=== PATIENT | female | born 1935 | race Caucasian/White ===

== ENCOUNTER 2016-12-17 02:44 | Emergency (ER) | payer MEDICARE, BC ==
[~2016-12-17] VITALS: Ht 160 cm; Wt 62.2 kg
[~2016-12-17 02:44] MED LIST: AMBIEN5 MG PO; ASPIRIN LOW DOS81 M2 PO; CALCIUM500 MG PO; DULERA1 AE1 IN; FISH OIL1000 MG PO; ISOSORB MONO30 MG PO; LISINOPRIL10 MG PO; METO50TA52 PO; MULTI VIT PO; NEXIUM40 M1 PO; PROLIA60 MG/ML SC; ZYRTEC10 MG PO
[2016-12-17] MEDS ORDERED: METO25TAB PO (03:01)
[2016-12-17] MEDS ORDERED: ASPIRIN81 MG PO (03:02)
[2016-12-17] MEDS ORDERED: PLAVIX75 MG PO (03:02)
[2016-12-17] MEDS ORDERED: CALTRATE 600+D1 CHW PO (03:04)
[2016-12-17] MEDS ORDERED: PROTONIX40 M2 PO (03:05)
[2016-12-17] MEDS ORDERED: LORTAB 5-325 MG1 TAB PO (04:25)
[2016-12-17 04:54] VITALS: BP 129/60
== END 2016-12-17 04:55 | disposition home or self-care (01) ==
LOC: ED 02:44
DX: M54.6 Pain in thoracic spine (principal); I48.91 Unspecified atrial fibrillation; I10 Essential (primary) hypertension; K21.9 Gastro-esophageal reflux disease without esophagitis; J45.909 Unspecified asthma, uncomplicated

== ENCOUNTER 2018-02-28 07:53 | Day surgery (SDC) | payer MEDICARE, BC ==
[~2018-02-28 07:53] MED LIST changes: +ALLEGRA ALLERGY60 MG PO; +ASPIRIN81 MG PO; +CALCIUM 600+D31 TA2 PO; +CALTRATE 600+D1 CHW PO; +CENTRUM SILVER1 TA1; +CO Q-10 PO; +DEXILANT60 MG PO; +LORTAB 5-325 MG1 TAB PO; +MAGNESIUM CITRATE PO; +MELATONIN5 M3 PO; +METO25TAB PO; +PLAVIX75 MG PO; +PROBIOTIC ACIDOPHILU PO; +PROTONIX40 M2 PO; +ROPINIROLE HCL0.5 MG PO; +VITAMIN D3400 UNIT PO; +XYZAL ALLERGY 245 MG; +[UNRECOGNIZED DRUG - OTHER] PO
[2018-02-28] MEDS ORDERED: DEXILANT30 MG PO (10:11)
[2018-02-28 10:43] VITALS: BP 103/58
== END 2018-02-28 10:33 | disposition home or self-care (01) ==
LOC: ENDO 07:53 → ORM 10:45
PROVIDERS: ATTEND Surgery
PROC: 0DJ08ZZ Inspection of Upper Intestinal Tract, Via Natural or Artificial Opening Endoscopic (ICD-10-PCS; principal; 2018-02-28)
DX: K44.9 Diaphragmatic hernia without obstruction or gangrene (principal); K21.9 Gastro-esophageal reflux disease without esophagitis; Z86.73 Personal history of transient ischemic attack (TIA), and cerebral infarction without residual deficits

== ENCOUNTER 2018-04-01 10:36 | Observation (INO) | payer MEDICARE, BC ==
[~2018-04-01] VITALS: Ht 160 cm; Wt 56.7 kg
[~2018-04-01 10:36] MED LIST changes: +DEXILANT30 MG PO
--- NOTE | 2018-04-01 10:36 | NUR ---
PT TO TX ROOM VIA EMS STRETCHER. NOTED GENERLIZED WEAKNESS. ENOC Marcelino
[2018-04-01 10:55] LABS: HEMATOCRIT 35.4 % (37.0-47.0); HEMOGLOBIN 12.2 g/dl (12.0-16.0); IMMATURE GRANULOCYTES 0.5 % (0.0-5.0); MEAN CELL VOLUME 86.3 fL CALC (80.0-100.0); MEAN CORPUSCULAR HGB 29.8 pG CALC (26.0-32.0); MEAN CORPUSCULAR HGB CONC 34.5 g/L CALC (32.0-36.0); NEUT# 3.89 thou/uL (2.00-7.15); RED BLOOD COUNT 4.1 mill/uL (4.20-5.60); RED CELL DISTRI WIDTH 15.2 % (11.5-15.5)
--- NOTE | 2018-04-01 11:11 | NUR ---
RETURN FROM RADIOLOGY WITH PT VIA STRETCHER.
[2018-04-01 11:15] LABS: ALBUMIN 4.2 g/dL (3.2-5.0); ALKALINE PHOSPHATASE 59 u/l (38-126); ANION GAP 13 (6-22 (CALC)); BILIRUBIN, TOTAL 0.4 mg/dL (0.0-1.4); BUN 15 mg/dL (8-23); BUN/CREATININE RATIO 18 (12-20 (CALC)); CARBON DIOXIDE 22 mmol/l (22-30); CHLORIDE 100 mmol/l (95-108); CREATININE 0.8 mg/dL (0.5-1.0); GFR > 60 ML/MIN (>=60 (CALC)); GFR FOR AFR.AMER. > 60 ML/MIN (>=60 (CALC)); POTASSIUM 4.5 mmol/l (3.5-5.1); SGOT/AST 27 u/l (9-36); SODIUM 131 mmol/l (137-146); TOTAL PROTEIN 7.3 g/dL (6.3-8.2)
[2018-04-01 11:27] LABS: MYOGLOBIN 30 ng/mL (0 - 62)
[2018-04-01 11:28] LABS: INTERNATIONAL NORMALIZED RATIO 0.9 RATIO (0.7-1.3); PROTHROMBIN TIME 9.9 SECONDS (9.0-12.5)
--- NOTE | 2018-04-01 11:55 | NUR ---
PT UP TO BEDSIDE COMMODE WITH 2 ASSIST. PT REPORTS CONTINUED DIZZINESS AND WORSENING NAUSEA. URINE SAMPLE PROVIDED.
[2018-04-01 12:07] LABS: URINE BILIRUBIN - DIPSTICK NEGATIVE (NEGATIVE); URINE BLOOD DIPSTICK NEGATIVE (NEGATIVE); URINE COLOR YELLOW; URINE GLUCOSE - DIPSTICK NEGATIVE (NEGATIVE); URINE KETONE 40 mg/dL (NEGATIVE); URINE LEUK ESTERASE NEGATIVE (NEGATIVE); URINE NITRITE - DIPSTICK NEGATIVE (Negative); URINE PH 6.5 (4.5-8.0); URINE PROTEIN - DIPSTICK TRACE mg/dL (NEG-TRACE); URINE UROBILINOGEN - DIPSTICK 0.2 E.U./dL (0.2)
[2018-04-01 12:11] LABS: URINE CLARITY CLEAR
--- NOTE | 2018-04-01 12:27 | NUR ---
DR PEREZ AT BEDSIDE TO DISCUSS RESULTS AND PLAN.
--- NOTE | 2018-04-01 12:33 | NUR ---
DR PEREZ REQUESTS PARTIAL ORTHOSTATIC VS SUPINE AND SITTING. DOCUMENTED AND DR PEREZ NOTIFIED. NO DROP IN BP, PT DENIES CURRENT DIZZINESS.
[2018-04-01] MEDS ORDERED: RANITIDINE150 M1 PO (12:36)
--- NOTE | 2018-04-01 12:54 | NUR ---
TELE MONITOR APPLIED. PT DENIES ANY NEEDS AT THIS TIME.
--- NOTE | 2018-04-01 12:57 | NUR ---
REPORT TO KIM MEIER. PT TO [employer] IN STABLE CONDITION VIA STRETCHER.
[2018-04-01 13:10] VITALS: BP 178/79
[2018-04-01 13:40] VITALS: BP 161/56
--- NOTE | 2018-04-01 14:52 | NUR ---
PT REPORT RECIEVED FROM ILENE JOHANSEN. PT TRANSPORTED TO [facility] VIA STRETCHER ACCOMPIANED BY ILENE ROCHA AND FAMILY @1304. PT AMBULATED FROM STRETCHER TO BED W/ MINIMAL ASSIST. VS DONE. ASSESSMENT COMPLETED AT THIS TIME. PT A/O X3. SPEECH IS CLEAR. PT C/O MINIMAL PAIN TO BACK OF HEAD, 4 OUT OF 10 ON PAIN SCALE. HEAD ASSESSED. NO OPENINGS. PT DENIES ANY CONFUSION, N/V. RESP EVEN AND UNLABORED. LUNG SOUNDS CLEAR. TELE IN PLACE. BOWEL SOUNDS ACTIVE X4. STRONG RADIAL AND PEDAL PULSES. #20 RAC NS @125. SITE APPEARS HEALTHY. PT HAS A OPEN WOUND TO POSTERIOR RT GREAT TOE FROM FALL AT HOME. BRUSING/SWELLING NOTED AROUND WOUND. SCANT AMOUNT OF BLOODY DRAINAGE. PICTURE TAKEN, IN CHART. CLEANED W/ SALINE, NONADHESIVE AND KERLIX APPLIED. POC DISCUSSED. SAFETY PRECAUTIONS IN PLACE. CALL LIGHT IN REACH. WILL CONTINUE TO MONITOR
--- NOTE | 2018-04-01 14:54 | NUR ---
PNEUMONIA VACCINE WILL NOT BE DUE UNTIL 07/03. WAS GIVEN PREVNAR-13 ON 06/09/17, PPSV23 WILL NOT BE DUE UNTIL 1 YEAR AFTER THIS DATE.
[2018-04-01 15:00] VITALS: BP 148/54
--- NOTE | 2018-04-01 16:19 | NUR ---
PT IN BED TALKING W/ SON. NO S/S OF DISTRESS. PT DENIES AND PAIN OR CONFUSION AT THIS TIME. TELE IN PLACE. CALL LIGHT IN REACH. WILL CONTINUE TO MONITOR
[2018-04-01 19:00] VITALS: BP 129/55
--- NOTE | 2018-04-01 20:00 | NUR ---
pt resting in bed. no complaints voiced. pt a/o able to voiced needs. denies pain. poc explaiined . pt voiced understanding. bed in lowest positon. call light w/i reach. will monitor.
[2018-04-02] VITALS (7 sets, daily range): BP systolic 129–154; BP diastolic 51–69
--- NOTE | 2018-04-02 01:30 | NUR ---
pt sleepin with eyes closed. family at bedside. no conncerns by family members. bed in lowest position. call light in reah. will monitor.
--- NOTE | 2018-04-02 06:10 | NUR ---
PT ASSISTED TO BATHROOM. NO OTHER CONCERNS NOICED.
--- NOTE | 2018-04-02 06:50 | NUR ---
PT REPORT RECIEVED FROM MARTARN. PT SLEEPING. NO S/S OF DISTRESS. CALL LIGHT IN REACH. WILL CONTINUE TO MONITOR
--- NOTE | 2018-04-02 07:09 | NUR ---
PT ASSESSMENT COMPLETE. A/O X3. SPEECH IS CLEAR. RESP EVEN AND UNLABORED. LUNG SOUNDS CLEAR. BOWEL SOUNDS ACTIVE X4. STRONG RADIAL PULSES, WEAK PEDAL PULSES. PT HAS DRESSING TO RT GREAT TOE. REMOVED, BRUISING/SWELLING NOTED W/ CIRCULAR OPEN WOUND, NO DRAINAGE VISIBLE. CLEANED W/ SALINE. NONADHESIVE AND KERLIX APPLIED. OFFERED PT ICE TO APPLY TO SWOLLEN RT GREAT TOE, PT REFUSED. #20 RAC NS @125. SITE APPEARS HEALTHY.PT DENIES ANY PAIN OR NEEDS. POC DISCUSSED. SAFETY PRECAUTIONS IN PLACE. CALL LIGHT IN REACH. WILL CONTINUE TO MONITOR.
[2018-04-02 09:03] LABS: HEMATOCRIT 33.1 % (37.0-47.0); HEMOGLOBIN 11.1 g/dl (12.0-16.0); MEAN CELL VOLUME 87.1 fL CALC (80.0-100.0); MEAN CORPUSCULAR HGB 29.2 pG CALC (26.0-32.0); MEAN CORPUSCULAR HGB CONC 33.5 g/L CALC (32.0-36.0); RED BLOOD COUNT 3.8 mill/uL (4.20-5.60); RED CELL DISTRI WIDTH 15.3 % (11.5-15.5)
[2018-04-02 09:14] LABS: ANION GAP 11 (6-22 (CALC)); BUN 13 mg/dL (8-23); BUN/CREATININE RATIO 18 (12-20 (CALC)); CARBON DIOXIDE 22 mmol/l (22-30); CHLORIDE 107 mmol/l (95-108); CREATININE 0.7 mg/dL (0.5-1.0); GFR > 60 ML/MIN (>=60 (CALC)); GFR FOR AFR.AMER. > 60 ML/MIN (>=60 (CALC)); POTASSIUM 3.9 mmol/l (3.5-5.1); SODIUM 136 mmol/l (137-146)
--- NOTE | 2018-04-02 12:00 | NUR ---
PT SITTING IN BED WATCHING TELEVISION. NO S/S OF DISTRESS. RESP EVEN AND UNLABORED. TELE IN PLACE. PT DENIES ANY PAIN AT THIS TIME. CALL LIGHT IN REACH. DAUGHTER AT BEDSIDE. WILL CONTINUE TO MONITOR
--- NOTE | 2018-04-02 14:13 | NUR ---
PT IN TO SEE PT
[2018-04-02] MEDS ORDERED: KEFLEX500 M1 PO (15:54)
--- NOTE | 2018-04-02 16:01 | NUR ---
PT SITTING IN BED WATCHING TELEVISION. NO S/S OF DISTRESS. TELE IN PLACE. PT DENIES ANY PAIN OR NEEDS. CALL LIGHT IN REACH. DAUGHTER AT BEDSIDE. WILL CONTINUE TO MONITOR.
--- NOTE | 2018-04-02 16:49 | NUR ---
D/C INSTRUCTIONS AND NEW PRESCRIBTION REVIEWED WITH PT AND DAUGHTER. NO FURTHER QUESTION. BOTH PT AND DAUGHTER STATE UNDERSTANDING. IV REMOVED. CATHETER INTACT. TELE REMOVED. PT GETTING DRESSING AT THIS TIME. PT WILL BE TRANSPORTED HOME WITH DAUGHTER
--- NOTE | 2018-04-02 16:55 | NUR ---
Discharge instructions given. Patient verbalizes understanding of same. Discharged in stable condition via Wheelchair to Home with family. All belongings sent with pt.
== END 2018-04-02 16:57 | disposition home or self-care (01) ==
LOC: ED 10:36 → ED-I 12:18 → ED 12:31 → MS2 12:32
PROVIDERS: Emergency Medicine; Nurse Practitioner Family; ADMIT Internal Medicine; ATTEND Internal Medicine
DX: S00.83XA Contusion of other part of head, initial encounter (principal); S90.411A Abrasion, right great toe, initial encounter; R26.89 Other abnormalities of gait and mobility; I10 Essential (primary) hypertension; K21.9 Gastro-esophageal reflux disease without esophagitis; K44.9 Diaphragmatic hernia without obstruction or gangrene; M81.0 Age-related osteoporosis without current pathological fracture; E87.1 Hypo-osmolality and hyponatremia; G25.81 Restless legs syndrome; W18.39XA Other fall on same level, initial encounter; Y93.89 Activity, other specified; Y92.008 Other place in unspecified non-institutional (private) residence as the place of occurrence of the external cause; Z87.310 Personal history of (healed) osteoporosis fracture; Z79.02 Long term (current) use of antithrombotics/antiplatelets; Z79.82 Long term (current) use of aspirin; Z86.73 Personal history of transient ischemic attack (TIA), and cerebral infarction without residual deficits

== ENCOUNTER → 2018-07-16 | Outpatient (REF) | payer MEDICARE, BC ==
[~2018-07-16] MED LIST changes: +KEFLEX500 M1 PO; +RANITIDINE150 M1 PO
[2018-07-16 17:04] LABS: HEMATOCRIT 35.5 % (37.0-47.0); HEMOGLOBIN 11.8 g/dl (12.0-16.0); MEAN CORPUSCULAR HGB 28.6 pG CALC (26.0-32.0); MEAN CORPUSCULAR HGB CONC 33.2 g/L CALC (32.0-36.0); RED BLOOD COUNT 4.13 mill/uL (4.20-5.60); RED CELL DISTRI WIDTH 15.3 % (11.5-15.5)
== END | disposition home or self-care (01) ==
LOC: CT 15:36
PROVIDERS: ATTEND Internal Medicine
DX: G45.8 Other transient cerebral ischemic attacks and related syndromes (principal); R19.5 Other fecal abnormalities

== ENCOUNTER → 2018-07-17 | Outpatient (REF) | payer MEDICARE, BC | END | disposition home or self-care (01) | LOC: INF 09:04 → LABSPEC 09:04 → INF 13:00 | PROVIDERS: ATTEND Internal Medicine | DX: R19.5 Other fecal abnormalities (principal) ==

== ENCOUNTER 2019-02-10 10:36 | Emergency (ER) | payer MEDICARE, BC ==
[~2019-02-10] VITALS: Ht 160 cm; Wt 59.0 kg
[2019-02-10 11:23] LABS: HEMATOCRIT 28.7 % (37.0-47.0); HEMOGLOBIN 9.5 g/dl (12.0-16.0); IMMATURE GRANULOCYTES 0.2 % (0.0-5.0); MEAN CELL VOLUME 79.9 fL CALC (80.0-100.0); MEAN CORPUSCULAR HGB 26.5 pG CALC (26.0-32.0); MEAN CORPUSCULAR HGB CONC 33.1 g/L CALC (32.0-36.0); NEUT# 1.69 thou/uL (2.00-7.15); RED BLOOD COUNT 3.59 mill/uL (4.20-5.60); RED CELL DISTRI WIDTH 17.1 % (11.5-15.5)
[2019-02-10] MEDS ORDERED: PLAVIX75 MG PO (11:44)
[2019-02-10 11:48] LABS: ALKALINE PHOSPHATASE 52 u/l (38-126); ANION GAP 13 (6-22 (CALC)); BILIRUBIN, TOTAL 0.3 mg/dL (0.0-1.4); BUN 13 mg/dL (8-23); BUN/CREATININE RATIO 17 (12-20 (CALC)); CARBON DIOXIDE 24 mmol/l (22-30); CHLORIDE 100 mmol/l (95-108); CREATININE 0.7 mg/dL (0.5-1.0); GFR > 60 ML/MIN (>=60 (CALC)); GFR FOR AFR.AMER. > 60 ML/MIN (>=60 (CALC)); POTASSIUM 4.5 mmol/l (3.5-5.1); SGOT/AST 25 u/l (9-36); SODIUM 133 mmol/l (137-146); TOTAL PROTEIN 6.6 g/dL (6.3-8.2)
[2019-02-10 11:49] LABS: ACT PARTIAL THROMBO TIME 24.2 SECONDS (20.0-32.5); INTERNATIONAL NORMALIZED RATIO 0.9 RATIO (0.7-1.3); PROTHROMBIN TIME 9.6 SECONDS (9.0-12.5)
[2019-02-10 12:06] LABS: URINE BILIRUBIN - DIPSTICK NEGATIVE (NEGATIVE); URINE BLOOD DIPSTICK NEGATIVE (NEGATIVE); URINE COLOR YELLOW; URINE GLUCOSE - DIPSTICK NEGATIVE (NEGATIVE); URINE KETONE NEGATIVE (NEGATIVE); URINE LEUK ESTERASE NEGATIVE (NEGATIVE); URINE NITRITE - DIPSTICK NEGATIVE (Negative); URINE PROTEIN - DIPSTICK NEGATIVE (NEG-TRACE); URINE UROBILINOGEN - DIPSTICK 0.2 E.U./dL (0.2)
[2019-02-10 12:30] VITALS: BP 167/69
== END 2019-02-10 12:30 | disposition home or self-care (01) ==
LOC: ED 10:36
DX: S00.03XA Contusion of scalp, initial encounter (principal); S39.012A Strain of muscle, fascia and tendon of lower back, initial encounter; I10 Essential (primary) hypertension; W18.30XA Fall on same level, unspecified, initial encounter; Z87.81 Personal history of (healed) traumatic fracture; Z86.73 Personal history of transient ischemic attack (TIA), and cerebral infarction without residual deficits; Z79.02 Long term (current) use of antithrombotics/antiplatelets

== ENCOUNTER 2019-12-03 08:15 | Observation (INO) | payer MEDICARE, BC ==
[~2019-12-03] VITALS: Ht 162.6 cm; Wt 59.0 kg
[~2019-12-03 08:15] MED LIST changes: +MELATONIN10 MG PO; -MELATONIN5 M3 PO
--- NOTE | 2019-12-03 08:15 | NUR ---
PT TO ROOM VIA EMS
--- NOTE | 2019-12-03 08:20 | NUR ---
PT MOVED TO STRETCHER USING SHEET. REPORT TAKEN FROM EMS. CHANGED TO GOWN. MONITORS APPLIED. PT ASSESSED. PT AO X 3. SKIN PINK WARM AND DRY. COMPLAINS OF DIZZINESS AND NAUSEA WITH MOVEMENT SINCE LAST NIGHT. FACIAL DROOP NOTED ON MEND EXAM.
[2019-12-03 08:47] LABS: GFR > 60 ML/MIN (>=60 (CALC)); GFR FOR AFR.AMER. > 60 ML/MIN (>=60 (CALC))
[2019-12-03 08:53] LABS: HEMOGLOBIN 12.8 g/dl (12.0-16.0); IMMATURE GRANULOCYTES 0.3 % (0.0-5.0); MEAN CELL VOLUME 88.2 fL CALC (80.0-100.0); MEAN CORPUSCULAR HGB 29.7 pG CALC (26.0-32.0); MEAN CORPUSCULAR HGB CONC 33.7 g/dL CAL (32.0-36.0); NEUT# 1.74 thou/uL (2.00-7.15); RED BLOOD COUNT 4.31 mill/uL (4.20-5.60); RED CELL DISTRI WIDTH 14.6 % (11.5-15.5)
[2019-12-03 09:08] LABS: ALBUMIN 4.1 g/dL (3.2-5.0); ALKALINE PHOSPHATASE 67 u/l (38-126); ANION GAP 9 (6-22 (CALC)); BUN 14 mg/dL (8-23); BUN/CREATININE RATIO 21 (12-20 (CALC)); CARBON DIOXIDE 24 mmol/l (22-30); CHLORIDE 102 mmol/l (95-108); CREATININE 0.6 mg/dL (0.5-1.0); GFR > 60 ML/MIN (>=60 (CALC)); GFR FOR AFR.AMER. > 60 ML/MIN (>=60 (CALC)); POTASSIUM 4.3 mmol/l (3.5-5.1); SODIUM 130 mmol/l (137-146)
[2019-12-03 09:11] LABS: BILIRUBIN, TOTAL 0.9 mg/dL (0.0-1.4); SGOT/AST 79 u/l (9-36)
--- NOTE | 2019-12-03 09:15 | NUR ---
PT RETURNED FROM XRAY. MONITORS APPLIED. PT RESTING ON STRETCHER. HOB ELEVATED. WARM BLANKET GIVEN. AWAITING RESULTS
[2019-12-03 09:20] LABS: MYOGLOBIN 56 ng/mL (0 - 62)
[2019-12-03 09:43] LABS: URINE BILIRUBIN - DIPSTICK NEGATIVE (NEGATIVE); URINE BLOOD DIPSTICK NEGATIVE (NEGATIVE); URINE COLOR YELLOW; URINE GLUCOSE - DIPSTICK NEGATIVE (NEGATIVE); URINE KETONE NEGATIVE (NEGATIVE); URINE LEUK ESTERASE NEGATIVE (NEGATIVE); URINE NITRITE - DIPSTICK NEGATIVE (Negative); URINE PH 7.5 (4.5-8.0); URINE PROTEIN - DIPSTICK NEGATIVE (NEG-TRACE); URINE SPECIFIC GRAVITY 1.015; URINE UROBILINOGEN - DIPSTICK 0.2 E.U./dL (0.2)
--- NOTE | 2019-12-03 09:44 | NUR ---
PT MEDICATED FOR NAUSEA AND DIZZINESS. PTS SON AT BEDSIDE
--- NOTE | 2019-12-03 10:07 | NUR ---
REPEAT NIHSS DONE. SCORE 0. DR PEREZ AWARE. PT REPORTS FEELING RELIEF FROM NAUSEA AND SOME RELIEF FROM DIZZINESS
--- NOTE | 2019-12-03 11:00 | NUR ---
PT TAKEN TO MRI.
--- NOTE | 2019-12-03 11:46 | NUR ---
PT RETURNED FROM MRI. MONITORS APPLIED. PT REPORTS RELIEF FROM NAUSEA AND ONLY VERY MILD DIZZINESS AT PRESENT TIME
--- NOTE | 2019-12-03 12:18 | NUR ---
MED SURG UNABLE TO TAKE REPORT AT THIS TIME
--- NOTE | 2019-12-03 12:19 | NUR ---
PT RECEIVED FROM NOLAN FROM PACU. PT IS IN STABLE CONDITION. VITALS ASSESED, PURWICK AND SCD'S REAPPLED TO PT. PT A&O X3; VERBALIZED PAIN AT 3-4 ON PAIN SCALE. PT STASTED THAT SHE HAD NO APPETITE AT THIS TIME. PT INSTRUCTED TO CALL FOR ANY CONCERNS. CALL CARDOZO PLACED WITHIN REACH. WILL CONTINUE TO MONITOR.
--- NOTE | 2019-12-03 12:51 | NUR ---
REPORT CALLED TO TRE ODOMRAILCAR SWITCHER
--- NOTE | 2019-12-03 13:00 | NUR ---
PT TRANSPORTED VIA STRETCHER TELEMETRY IN PLACE TO [facility]
[2019-12-03 13:03] VITALS: BP 187/75
--- NOTE | 2019-12-03 13:15 | NUR ---
PT ARRIVED FROM THE ER VIA STRETCHER ACCOMPANIED BY ED NURSE YUMIKO. PT TRANSFERED TO BED FROM STRETCHER. V/S ASSESSED AND PT WAS INSTRUCTED TO CALL SYSTEM, LIGHT BED AND TV. JERONIMO ASSESSMENT COMPLETED. PHYSICAL ASSESSMENT COMPLETED. PT IS ALERT AND ORIENTED X3. PT IS IN NO APPARENT DISTRESS. DISCUSSED POC. PT INSTRUCTED TO CALL PRIOR TO AMUBLATING IF SHE NEEDS TO GET UP. PT VERBELIZED UNDERSTANDING. CALL CARDOZO WITHIN REACH. WILL CONTINUE TO MONITOR.
[2019-12-03 13:50] VITALS: BP 157/78
--- NOTE | 2019-12-03 15:06 | NUR ---
PT AT BEDSIDE FOR EVAL AND TREAT. NOTIFIED OF SEVERE DIZZINESS WITH MOVEMENT. TREATED FOR VERTIGO IN LEFT EAR. PROCESS DESIGN CHEMICAL ENGINEER NOTIFIED.
--- NOTE | 2019-12-03 16:02 | NUR ---
MECLIZINE ADMINISTERED FOR PERSISTENT DIZZINESS UPON MOVEMENT. VERY MILD NAUSEA WITH DIZZINESS; PT REQUESTING APPLESAUCE FOR A SNACK AND ORANGE JUICE.
--- NOTE | 2019-12-03 16:17 | NUR ---
PATIENT RESTING IN BEDALERT AND ORIENTED. PTS SON IS BEDSIDE. ENCOURAGED TO CALL FOR ANY NEEDS. CALL CARDOZO WITHIN REACH.
[2019-12-03] MEDS ORDERED: NORVASC2.5 M1 PO (16:20)
[2019-12-03] MEDS ORDERED: MAGNESIUM250 M1 PO (16:22)
[2019-12-03] MEDS ORDERED: CALCITONIN200 UNIT/1 NAB (16:22)
[2019-12-03] MEDS ORDERED: GABAPENTIN100 MG PO (16:23)
[2019-12-03] MEDS ORDERED: [UNRECOGNIZED DRUG - OTHER] PO (16:25)
--- NOTE | 2019-12-03 16:27 | NUR ---
OT AT BEDSIDE FOR EVAL. MED REC COMPLETED.
--- NOTE | 2019-12-03 18:11 | NUR ---
LAB AT BEDSIDE.
[2019-12-03 18:30] VITALS: BP 111/64
--- NOTE | 2019-12-03 18:54 | NUR ---
SON BROUGHT IN HOME MED DEXILANT AND MED PLACED IN MED ROOM FOR PHARMACY.
--- NOTE | 2019-12-03 20:21 | NUR ---
PT RESING IN BED, ALERT AND ORIENTED. RESPIRATIONS EVEN AND UNLABORED ON RA. LUNGS SOUND DIMINISHED. PEDAL PULSES WEAK. PT DENIES ANY PAIN OR DISCOMFORT AT THIS TIME. PT ASKING FOR ROPINIROLE FOR HER RESTLESS LEGS TO BE NOTIFIED. PT ASSISTED TO THE BATHROOM PER RESQUEST, AND BACK TO BED. SAFETY PRECAUTIONS IN PLACE. WILL CONTINUE TO MONITOR.
--- NOTE | 2019-12-03 23:52 | NUR ---
MADE AWARE OF PT HEART RATE DROPPING INTO THE 30S. UPON ENTERING THE ROOM PT STARING. UNABLE TO ANSWER QUESTIONS, UNABLE TO FOLLOW COMMANDS, RESPONSIVE TO STIMULI. VS OBTAINED. [id number] STROKE ALERT CALLED. PT TRANSPORTED TO CT VIA BED ACCOMPANIED BY STAFF.
--- NOTE | 2019-12-03 23:58 | NUR ---
STROKE ALERT CALLED @ 2358. PT UNRESPONSIVE VERBALLY. PT A PT ON MED-SURG WHERE SHE WAS ADMITTED FOR DIZZINESS/TIA EARLIER IN THE DAY. PT HAD A NEG CT AND MRI EARLIER TODAY. PRIOR TO STOKE ALERT AT THIS TIME, PT WAS LAST SEEN NORMAL AT 2200. IT WAS ALSO NOTED BY OCCASIONAL CAREGIVER THAT HR WENT DOWN IN THE 30'S. REINFORCED CONCRETE INSPECTOR NOTIFIED AND UPON ENTERING ROOM FOUND PT APHASIC. UNABLE TO SPEAK. PT TRANSFERRED TO CT. PT ARRIVED IN CT A 0010. ABLE TO STATE NAME AT THAT TIME. BS 85. CT COMPLETED AND PT TAKEN TO ER. INH STARTED. DR MARIYA ROSE CALLED TELESTROKE CART NOT RESPONDING. DISCUSSED HX OF STROKE ALERT EARLIER IN THE DAY. HE WAS REVIEWING THE RECORDS OF TODAY'S EVENTS. WE ARE TO CALL HIM BACK IF ANY NEW ISSUES ON THE NEW CT. DR CASTILLO OF TELERADIOLOGY CALLED AT [address] WAS NEG. DR LUCIA NOTIFIED OF EVENTS AT 0035. OK TO RETURN PT TO FLOOR. PT IS MORE ALERT AND IS NOW SPEAKING NORMALLY WITHOUT APHASIA. VSS. PT TRANSFERRED BACK TO FLOOR BY NS REINFORCED CONCRETE INSPECTOR AND CHET/MED-SURG NURSE, WHO IS CARING FOR THE PT.
[2019-12-04] VITALS (7 sets, daily range): BP systolic 95–150; BP diastolic 52–84
--- NOTE | 2019-12-04 00:10 | NUR ---
PT IN CT. ACCUCHECK 85. PT REPORTS BEING COLD ONLY ABLE TO GIVE HER NAME AT THIS TIME. OO23 PT TRANSPORTED TO ER, VIA BED ACCOMPANIED BY STAFF.
--- NOTE | 2019-12-04 00:25 | NUR ---
PT ARRIVED TO ER, PT PUT ON MONITOR. VS OBTAINED. BP 121/58, HEART RATE 64, 02 88 RA, O2 VIA NC APPLIED O2 SAT 98. PT UNABLE TO RESPOND APPROPRIATELY TO QUESTIONS. NO DRIFT NOTED IN UPPER EXTREMITIES, NO DRIFT IN RIGHT LEG, LEFT LEG DRIFTED DOWN TO BED. 0027 ER NURSE SPOKE TO TELESTROKE .
--- NOTE | 2019-12-04 00:32 | NUR ---
ER NURSE SPOKE WITH SUPERVISORY AIR INTERCEPT CONTROLLER MD. ORDERS OBTAIN, PT TO RETURN TO [facility].
--- NOTE | 2019-12-04 00:49 | NUR ---
PT TRANSPORTED TO [facility] VIA BED, ACCOMPANIED BY STAFF. PT ALERT AND ORIENTED NOW, VS OBTAINED. TELE IN PLACE. WILL CONTINUE TO MONITOR.
--- NOTE | 2019-12-04 04:20 | NUR ---
PT RESTING IN BED, TELE IN PLACE. WILL CONTINUE TO MONTIOR.
[2019-12-04 06:14] LABS: HEMATOCRIT 37.8 % (37.0-47.0); HEMOGLOBIN 12.6 g/dl (12.0-16.0); IMMATURE GRANULOCYTES 0.3 % (0.0-5.0); MEAN CELL VOLUME 88.9 fL CALC (80.0-100.0); MEAN CORPUSCULAR HGB 29.6 pG CALC (26.0-32.0); MEAN CORPUSCULAR HGB CONC 33.3 g/dL CAL (32.0-36.0); NEUT# 3.79 thou/uL (2.00-7.15); RED BLOOD COUNT 4.25 mill/uL (4.20-5.60); RED CELL DISTRI WIDTH 14.7 % (11.5-15.5)
[2019-12-04 06:37] LABS: ALBUMIN 3.7 g/dL (3.2-5.0); ALKALINE PHOSPHATASE 60 u/l (38-126); ANION GAP 9 (6-22 (CALC)); BUN 13 mg/dL (8-23); BUN/CREATININE RATIO 18 (12-20 (CALC)); CARBON DIOXIDE 26 mmol/l (22-30); CHLORIDE 101 mmol/l (95-108); CREATININE 0.7 mg/dL (0.5-1.0); GFR > 60 ML/MIN (>=60 (CALC)); GFR FOR AFR.AMER. > 60 ML/MIN (>=60 (CALC)); POTASSIUM 4.4 mmol/l (3.5-5.1); SGOT/AST 26 u/l (9-36); SODIUM 131 mmol/l (137-146); TOTAL PROTEIN 6.1 g/dL (6.3-8.2)
[2019-12-04 06:39] LABS: BILIRUBIN, TOTAL 0.4 mg/dL (0.0-1.4); CHOLESTEROL HDL RATIO 2.5 (<4.4 (CALC))
--- NOTE | 2019-12-04 10:29 | NUR ---
Screen: Speech Therapy is not needed at this time per interdisciplinary team.
--- NOTE | 2019-12-04 12:13 | NUR ---
PT IN BED WITH EYES OPEN AND ABLE TO MAKE NEEDS KNOWN. SKIN WARM TO TOUCH. PT COMPPLAINED OF SOME DIZZINESS THIS AM. METOPROLOL HELD THIS AM PER MD DUE TO SYMPTOMATIC BRADYCARDIA. PT IS ALERT AND ORIENTED AND ABLE TO MAKE NEEDS KNOWN. SON AT BEDSIDE. PT HAS CONSULT WITH CARDOLOGIST THIS AM. AWAITING SURGICAL PROCESSOR. CARDIOLOGY NOTIFIED. PT IS CONTINENT OF B/B AND NEEDS ASSIST TO TOILET X 1 ASSIST. CALL LIGHT WITHIN REACH. BED IN LOWEST POSITION. PT TEACHING DONE WITH PT ON FALL PREVENTION AND SAFETY AWARENESS AND SHE STATES SHE UNDERSTANDS. WILL CONTINUE TO OBSERVE
--- NOTE | 2019-12-04 13:49 | NUR ---
PT note pt was seen for therex and gait training. in supine ankle pumps 2x10, heel slides 2x10, pillow squeeze adduction 2x10, quad setting 2x10, glute setting 2x10. Then pt transitioned from supine to sitting on EOB. Gait training with RW 50ft x2 with CGA. Pt was able to perform all therex and gait training without showing signs of exertion. Also in standing heel raises 2x10, hip abduction 2x10, mini squats 2x10. ampac = 17
--- NOTE | 2019-12-04 17:38 | NUR ---
PT SITTING UP IN BED WITH DINNER IN FRONT OF HER. DENIES PAIN OR DISCOMFORT. MEDICATIONS GIVEN AND TOLERATED WELL. SON AT BEDSIDE. MEAL INTAKE FAIR AND FLUIDS TOLERATED WELL. DENIES PAIN AND DISCOMFORT. CALL LIGHT WITHIN REACH. WILL CONTINUE TO OBSERVE
--- NOTE | 2019-12-04 19:45 | NUR ---
PT RETURNING TO BED FROM THE BATH ROOM, USING THE WALKER. PT IS ALERT AND ORIENTED. RESPIRATIONS EVEN AND UNLABORED ON RA. LUNGS SOUND CLEAR. PEDAL PULSES ARE STRONG. PT DENIES ANY PAIN OR DISCOMFORT AT THIS TIME. PT PROVIDED WITH PRUNE JUICE, PER REQUEST. TELE IN PLACE. CALL CARDOZO WITHIN REACH. PT LEFT SITTING UP IN BED, SON AT BEDSIDE. WILL CONTINUE TO MONITOR.
--- NOTE | 2019-12-05 00:15 | NUR ---
PT RESTING IN BED, NO S/S OF DISTRESS AT THIS TIME. SAFETY PRECAUTIONS IN PLACE. WILL CONTINUE TO MONITOR.
[2019-12-05 03:57] VITALS: BP 120/58
--- NOTE | 2019-12-05 04:39 | NUR ---
PT RESTING IN BED, NO S/S OF DISTRESS AT THIS TIME. SAFETY PRECAUTIONS IN PLACE. WILL CONTINUE TO MONITOR.
[2019-12-05 05:19] LABS: HEMATOCRIT 35.5 % (37.0-47.0); HEMOGLOBIN 11.8 g/dl (12.0-16.0); MEAN CELL VOLUME 88.8 fL CALC (80.0-100.0); MEAN CORPUSCULAR HGB 29.5 pG CALC (26.0-32.0); MEAN CORPUSCULAR HGB CONC 33.2 g/dL CAL (32.0-36.0); RED CELL DISTRI WIDTH 14.6 % (11.5-15.5)
[2019-12-05 05:47] LABS: ANION GAP 9 (6-22 (CALC)); BUN 14 mg/dL (8-23); BUN/CREATININE RATIO 19 (12-20 (CALC)); CARBON DIOXIDE 27 mmol/l (22-30); CHLORIDE 100 mmol/l (95-108); CREATININE 0.8 mg/dL (0.5-1.0); GFR > 60 ML/MIN (>=60 (CALC)); GFR FOR AFR.AMER. > 60 ML/MIN (>=60 (CALC)); POTASSIUM 4.3 mmol/l (3.5-5.1); SODIUM 131 mmol/l (137-146)
--- NOTE | 2019-12-05 07:15 | NUR ---
REPORT RECEIVED FROM ILENE ROSENBERG. PT RESTING IN BED SEMI FOWLERS; ALERT AND ORIENTED X 4. DENIES PAIN, DIZZINESS, SOB, OR NAUSEA. RESPIRATIONS EVEN AND UNLABORED ON ROOM AIR; SPO2 92%. VSS. SR 69. PT AMBULATED TO BATHROOM INDEPENDENLTY WITH WALKER AND SUPERVISION. PLAN OF CARE REVIEWED. PT ENCOURAGED TO VERBALIZE CONCERNS. STATES UNDERSTANDING. SAFETY MEASURES IN PLACE. CALL LIGHT WITHIN REACH.
--- NOTE | 2019-12-05 07:49 | NUR ---
DR. ROCHA AT BEDSIDE TO DISCUSS DISCHARGE PLANS AND FOLLOW UP CARE; SON AT BEDSIDE WELL. PT SITTING UP IN CHAIR FOR BREAKFAST.
[2019-12-05 07:56] VITALS: BP 135/78
--- NOTE | 2019-12-05 09:29 | NUR ---
IV site discontinued, cath intact. Some swellling and redness noted at site, but pt denies discomfort. Instructed to apply ice and monitor for infection. States understanding. Declines am meds stating that she will take all her morning medication when she gets home.
--- NOTE | 2019-12-05 09:40 | NUR ---
Discharge instructions given. Patient verbalizes understanding of same. Discharged in stable condition via Wheelchair to Home with son. All belongings sent with pt including home med.
== END 2019-12-05 10:43 | disposition home or self-care (01) ==
LOC: ED 08:15 → ED-I 10:20 → ED 10:32 → MS2 10:33 → ED-I 10:33 → MS2 11:28
PROVIDERS: Emergency Medicine; Nurse Practitioner; ADMIT Internal Medicine; ATTEND Internal Medicine
DX: R42 Dizziness and giddiness (principal); R00.1 Bradycardia, unspecified; R26.89 Other abnormalities of gait and mobility; E87.1 Hypo-osmolality and hyponatremia; I10 Essential (primary) hypertension; K21.9 Gastro-esophageal reflux disease without esophagitis; G47.33 Obstructive sleep apnea (adult) (pediatric); Z86.73 Personal history of transient ischemic attack (TIA), and cerebral infarction without residual deficits; Z11.59 Encounter for screening for other viral diseases
CPT/HCPCS: G0378; J1650; Q9967

== ENCOUNTER 2022-09-15 12:25 | Observation (INO) | payer MEDICARE, BC ==
[~2022-09-15] VITALS: Ht 162.6 cm; Wt 57.0 kg
[2022-09-15] VITALS (25 sets, daily range): BP systolic 86–180; BP diastolic 55–106
[~2022-09-15 12:25] MED LIST changes: +CALCITONIN200 UNIT/1 NAB; +GABAPENTIN100 MG PO; +MAGNESIUM250 M1 PO; +NORVASC2.5 M1 PO; +[UNRECOGNIZED DRUG - OTHER] PO
[2022-09-15 13:12] LABS: BASO% 0.3 % (0-3); EOS% 0.9 % (0-8); HEMATOCRIT 39.9 % (37.0-47.0); IMMATURE GRANULOCYTES 0.3 % (0.0-5.0); MEAN CELL VOLUME 90.1 fL CALC (80.0-100.0); MEAN CORPUSCULAR HGB 29.3 pG CALC (26.0-32.0); MEAN CORPUSCULAR HGB CONC 32.6 g/dL CAL (32.0-36.0); MONO% 10.1 % (2-13); NEUT# 2.56 thou/uL (2.00-7.15); NEUT% 36.4 % (42-76); RED BLOOD COUNT 4.43 mill/uL (4.20-5.60)
[2022-09-15 13:29] LABS: INTERNATIONAL NORMALIZED RATIO 0.9 RATIO (0.7-1.3); PROTHROMBIN TIME 9.3 SECONDS (9.0-12.5)
[2022-09-15 13:30] LABS: ALBUMIN 4.3 g/dL (3.2-5.0); ALKALINE PHOSPHATASE 64 u/l (38-126); ANION GAP 14 (6-22 (CALC)); BILIRUBIN, TOTAL 0.2 mg/dL (0.02-1.3); BUN 14 mg/dL (8-23); BUN/CREATININE RATIO 18 (12-20 (CALC)); CARBON DIOXIDE 22 mmol/l (22-30); CHLORIDE 103 mmol/l (95-108); CREATININE 0.8 mg/dL (0.5-1.0); GFR FOR AFR.AMER. > 60 ML/MIN (>=60 (CALC)); GFR OTHER RACES > 60 ML/MIN (>=60 (CALC)); POTASSIUM 3.9 mmol/l (3.5-5.1); SGOT/AST 33 u/l (9-36); SODIUM 135 mmol/l (137-146); TOTAL PROTEIN 7.1 g/dL (6.3-8.2)
[2022-09-15] MEDS ORDERED: PEPCID40 MG PO (16:16)
[2022-09-15] MEDS ORDERED: ABILIFY10 MG PO (16:17)
[2022-09-15] MEDS ORDERED: D3 ULTRA ST5000 UNIT PO (16:19)
[2022-09-15] MEDS ORDERED: ROPINIROLE0.5 MG PO (18:30)
[2022-09-15] MEDS ORDERED: FAMOTIDINE20 M1 PO (18:31)
[2022-09-15] MEDS ORDERED: ALLEGRA ALLERGY60 MG PO (18:32)
[2022-09-15] MEDS ORDERED: MAGNESIUM OXID400 M1 PO (18:33)
[2022-09-15] MEDS ORDERED: AMLOD/BENAZP1 CAP PO (18:35)
[2022-09-15 20:33] LABS: BASO% 0.1 % (0-3); EOS% 0.1 % (0-8); HEMATOCRIT 36.3 % (37.0-47.0); IMMATURE GRANULOCYTES 0.2 % (0.0-5.0); LYMPH% 28.9 % (15-41); MEAN CELL VOLUME 89.4 fL CALC (80.0-100.0); MEAN CORPUSCULAR HGB 29.6 pG CALC (26.0-32.0); MEAN CORPUSCULAR HGB CONC 33.1 g/dL CAL (32.0-36.0); MONO% 6.2 % (2-13); NEUT# 5.92 thou/uL (2.00-7.15); NEUT% 64.5 % (42-76); RED BLOOD COUNT 4.06 mill/uL (4.20-5.60); RED CELL DISTRI WIDTH 13.9 % (11.5-15.5)
[2022-09-15 20:48] LABS: ACT PARTIAL THROMBO TIME 24.1 SECONDS (20.0-32.5); PROTHROMBIN TIME 9.6 SECONDS (9.0-12.5)
== END 2022-09-15 22:15 | disposition short-term general hospital (02) ==
LOC: ED 12:25 → ED-I 15:20 → MS2 16:17 → ED 16:17 → ICU 19:30
PROVIDERS: Nurse Practitioner; ADMIT Internal Medicine; ATTEND Internal Medicine
DX: I21.9 Acute myocardial infarction, unspecified (principal); I10 Essential (primary) hypertension; G25.81 Restless legs syndrome; K21.9 Gastro-esophageal reflux disease without esophagitis; Z86.73 Personal history of transient ischemic attack (TIA), and cerebral infarction without residual deficits
CPT/HCPCS: J1644